=== PATIENT | female | born 1975 | race Caucasian/White ===

== ENCOUNTER → 2022-07-05 | Outpatient (CLI) | payer BC ==
[2022-07-05 13:56] VITALS: BP 128/85; PULSE 72; TEMP 99.1; BMI 30.7
--- NOTE | 2022-07-05 14:22 | P.HPBAR ---
Bariatric H&P - History & Physicial H&P Date: 07/05/22 History & Physicial: Visit/CC: lap band problems Patient initial contact: Initial weight: Initial weight in pounds: Height: 5 ft 4 in Initial BMI: Last weight: Current weight: 81.193 kg Current weight in pounds: 179.00 Current BMI: 30.7 [place] body weight (based on NIH guidelines): 54.431 kg Excess body weight loss: The patient is a 46 year-old F who presents for Bariatric Assessment. She has an adjustable gastric band [place] in [address] Mcguire. She reports trouble with her band 1 month ago. She reports new acid reflux, hiccups, and burning. She reports gurgling. She has no fluid or adjustment of her band. No redness or pain along her port. No fevers or chills. Highest weight 236 pounds. Her lowest weight of 160 pounds. She is due for her colonoscopy. Recommend esophagram. Plan for fluid adjusted over 5 years ago. She can tolerate liquids. Her sister had the band to sleeve. She is looking a conversion of her band to sleeve. Esophagram reviewed. Severe obstruction found with dilated esophagus. Removed 3 .4 mL of fluid. She tolerated fluids. No band slippage. Past Medical History Past Medical History: Asthma History of Any Multi-Drug Resistant Organisms: None Reported Past Surgical History: Bariatric Surgery, Cholecystectomy Additional Past Surgical History / Comment(s): lap band 2009 Past Anesthesia/Blood Transfusion Reactions: No Reported Reaction Past Psychological History: No Psychological Hx Reported Smoking Status: Never smoker Past Alcohol Use History: Rare Past Drug Use History: None Reported Surgical - Exam Vital Signs Temp Pulse BP 99.1 F 72 128/85 07/05/22 13:53 07/05/22 13:53 07/05/22 13:53 Bariatric Checklist Checklist: Plan: Checklist: EGD: 1. Hiatal hernia: 2. H. Pylori: HgbA1c: Vitamin D: Smoking: Primary care physician referral: Psychiatry clearance: Cardiology clearance: Sleep study: Diet journal: VTE risk score: VTE risk level: Rehab needs at discharge:
--- NOTE | 2022-07-05 15:22 | FL ---
EXAMINATION TYPE: FL barium swallow DATE OF EXAM: 07/05/2022 LAP BANDING LIMITED ESOPHAGRAM: CLINICAL HISTORY: Worsening dysphagia over last 2 months. The lap Band placed 11 years ago. Current fill not known. No recent changes. TECHNIQUE: Limited esophagram is performed utilizing 2-3 oz of barium. One min 25 seconds of fluoro time and 37 images obtained. COMPARISON: Prior Limited esophagram January 04, 2021. FINDINGS: Pre-procedure [employer] image shows lap band to appear fairly stable and satisfactory positi on in proximal stomach just below the gastroesophageal junction. The phi angle is maintained. Patient then drank oral contrast. There is good flow of contrast along the course of the esophagus. There i s marked delay in flow at site of lap band with tapering. There is dilatation of the distal esophagus . After approximately 5 minutes only minimal contrast has passed through lap band into the more dista l stomach. Cholecystectomy clips are incidentally noted. IMPRESSION: Severe stenosis or narrowing at lap band now identified.
== END | disposition home or self-care (01) ==
LOC: BARWHC3 13:17
PROVIDERS: ATTEND Surgery Plastic and Reconstructive Surgery
DX: R13.10 Dysphagia, unspecified (principal)
CPT/HCPCS: 74220; 99211

== ENCOUNTER → 2022-12-27 | Outpatient (CLI) | payer BC ==
[2022-12-27 17:29] VITALS: BP 123/79; PULSE 85; TEMP 98; BMI 34.4
--- NOTE | 2022-12-27 17:59 | P.BASOAP ---
Subjective Progress Note Date: 12/27/22 Added 1.2 Ml = 2.8 Ml no problems, Objective - Vital Signs Vital signs: Vital Signs Temp 98 F 12/27/22 17:26 Pulse 85 12/27/22 17:26 Resp BP 123/79 12/27/22 17:26 Pulse Ox FiO2 Intake & Output 12/26/22 12/27/22 12/27/22 18:59 06:59 18:59 Weight 91.172 kg Assessment/Plan Plan: Date: 12/27/22 Initial Weight: Initial BMI: Current Weight: 91.172 kg Current BMI: 34.4 Type of Surgery: Total Volume in Band: 1.6 Previous Volume: Volume Removed: Volume Added: Band Size:
== END ==
LOC: BARWHC3 16:08
PROVIDERS: ATTEND Surgery Plastic and Reconstructive Surgery
DX: E66.01 Morbid (severe) obesity due to excess calories (principal); Z68.34 Body mass index [BMI] 34.0-34.9, adult
CPT/HCPCS: 99212

== ENCOUNTER → 2024-09-10 | Outpatient (CLI) | payer BC ==
[2024-09-10 14:58] VITALS: BP 111/73; PULSE 74; RESP 16; TEMP 98.2; BMI 25.2
--- NOTE | 2024-09-10 15:30 | P.HPBAR ---
Bariatric H&P - History & Physicial H&P Date: 09/10/24 History & Physicial: Visit/CC: f/u lap Patient initial contact: Initial weight: Initial weight in pounds: Height: 5 ft 4 in Initial BMI: Last weight: Current weight: 66.678 kg Current weight in pounds: 147.00 Current BMI: 25.2 [place] body weight (based on NIH guidelines): 54.431 kg Excess body weight loss: The patient is a 48 year-old F who presents for Bariatric Assessment. She comes in for skin removal surgery with another provider. She reports she needs to get clearance. She reports her provider is Jenelle Camacho DO. Information looked for certification in surgery. Recommend blood work, EKG, prior to clearance which is requested. Recommend correct nutrition. Provider not found under board certified status. Past Medical History Past Medical History: Asthma History of Any Multi-Drug Resistant Organisms: None Reported Past Surgical History: Bariatric Surgery, Cholecystectomy Additional Past Surgical History / Comment(s): lap band 2010 Past Anesthesia/Blood Transfusion Reactions: No Reported Reaction Past Psychological History: No Psychological Hx Reported Smoking Status: Never smoker Past Alcohol Use History: Rare Past Drug Use History: None Reported - Past Family History Mother Family Medical History: No Reported History Surgical - Exam Vital Signs Temp Pulse Resp BP 98.2 F 74 16 111/73 09/10/24 14:52 09/10/24 14:52 09/10/24 14:52 09/10/24 14:52 Bariatric Checklist Checklist: Plan: Checklist: EGD: 1. Hiatal hernia: 2. H. Pylori: HgbA1c: Vitamin D: Smoking: Primary care physician referral: [facility] Psychiatry clearance: Cardiology clearance: Sleep study: Diet journal: VTE risk score: VTE risk level: Rehab needs at discharge:
[2024-09-10 16:55] LABS: INR 0.9 (<1.2); Partial Thromboplastin Time 24.2 sec (22.0-30.0); Prothrombin Time 10.4 sec (10.0-12.5)
[2024-09-11 03:54] LABS: HCT 41.3 % (37.2-46.3); HGB 13.4 g/dL (12.0-15.0); MCH 31.5 pg (27.0-32.0); MCHC 32.4 g/dL (32.0-37.0); MCV 97.2 FL (80.0-97.0); Mean Platelet Volume 11.1 FL (9.5-12.2); NRBC Per 100 WBC 0 X 10*3/uL (0.00-0.01); Platelet Count 265 X 10*3/uL (140-440); RBC 4.25 X 10*6/uL (4.10-5.20); RDW 13.3 % (11.5-14.5); WBC 9.07 X 10*3/uL (4.50-10.00)
[2024-09-11 04:20] LABS: Prealbumin 17.7 mg/dL (18.0-42.0)
[2024-09-11 04:49] LABS: ALT 13 U/L (8-44); AST 27 U/L (13-35); Albumin 3.9 g/dL (3.8-4.9); Albumin/Globulin Ratio 1.62 Ratio (1.60-3.17); Alkaline Phosphatase 32 U/L (41-126); Blood Urea Nitrogen 21.6 mg/dL (9.0-27.0); Calcium 8.9 mg/dL (8.7-10.3); Carbon Dioxide 21.5 mmol/L (21.6-31.8); Chloride 106 mmol/L (96-109); Chol/HDL Ratio 2.55 Ratio; Globulin 2.4 g/dL (1.6-3.3); Glucose 85 mg/dL (70-110); Iron 59 UG/DL (50-170); LDL Cholesterol,Calculated 92.7 mg/dL (0.0-131.0); Magnesium 1.8 mg/dL (1.5-2.4); Phosphorus 3.7 mg/dL (2.4-5.1); Potassium 4.1 mmol/L (3.5-5.5); Sodium 139 mmol/L (135-145); Total Bilirubin 0.9 mg/dL (0.3-1.2); Total Iron Binding Capacity 281 UG/DL (228-460); Total Protein 6.3 g/dL (6.2-8.2)
[2024-09-12 05:58] LABS: Vitamin A 36 ug/dL (38-106)
[2024-09-12 06:25] LABS: Vit B1(Thiamine) 57 ug/L (38-122)
== END ==
LOC: BARWHC3 14:22
PROVIDERS: ATTEND Surgery Plastic and Reconstructive Surgery
DX: E66.01 Morbid (severe) obesity due to excess calories (principal); D50.8 Other iron deficiency anemias; K90.89 Other intestinal malabsorption; E55.9 Vitamin D deficiency, unspecified; N19 Unspecified kidney failure; E89.1 Postprocedural hypoinsulinemia; T56.894A Toxic effect of other metals, undetermined, initial encounter; K74.1 Hepatic sclerosis; K50.90 Crohn's disease, unspecified, without complications; Z98.84 Bariatric surgery status; Z91.013 Allergy to seafood; Z68.25 Body mass index [BMI] 25.0-25.9, adult
CPT/HCPCS: 80053; 80061; 80307; 80377; 82306; 82525; 82607; 82728; 82746; 83036; 83540; 83550; 83735; 83970; 84100; 84134; 84255; 84425; 84443; 84590; 84630; 85027; 85610; 85730; 87086; 93005; 99211